=== PATIENT | male | born 1955 | race Caucasian/White ===

== ENCOUNTER → 2024-08-16 06:33 | Outpatient (REF) | payer MEDICARE, SELFPAY | LOC: MRI 3T 06:33 | PROVIDERS: ATTENDING PHYSICIAN Podiatrist Foot & Ankle Surgery; FAMILY PHYSICIAN Family Medicine | DX: S92.015A Nondisplaced fracture of body of left calcaneus, initial encounter for closed fracture (principal) | CPT/HCPCS: 73721 ==

== ENCOUNTER → 2024-08-18 11:02 | Outpatient (REF) | payer MEDICARE, SELFPAY | LOC: CLAB 11:02 | PROVIDERS: ATTENDING PHYSICIAN Specialist | DX: R97.20 Elevated prostate specific antigen [PSA] (principal) | CPT/HCPCS: 36415; 88305 ==

== ENCOUNTER 2024-12-07 06:19 | Day surgery (SDC) | payer MEDICARE, SELFPAY | END 2024-12-07 15:49 | disposition home or self-care (01) | LOC: GI 06:19 | PROVIDERS: ATTENDING PHYSICIAN Internal Medicine | DX: Z12.11 Encounter for screening for malignant neoplasm of colon (principal); D12.3 Benign neoplasm of transverse colon; K57.30 Diverticulosis of large intestine without perforation or abscess without bleeding; Z86.0100 Personal history of colon polyps, unspecified | CPT/HCPCS: 45385; 88305 ==